=== PATIENT | female | born 1960 | race Hispanic/Latino ===

== ENCOUNTER 2019-11-25 06:02 | Day surgery (SDC) | payer BC ==
[2019-11-20 11:28] LABS: BASOPHILS % (AUTO) 0.8 % (0.0-5.0); EOSINOPHILS % (AUTO) 2.5 % (0.0-8.0); HEMATOCRIT 40.8 % (36-48); LYMPHOCYTES % (AUTO) 48.6 % (21.0-51.0); MEAN CORPUSCULAR HEMOGLOBIN 27.6 pg (27.0-33.0); MEAN CORPUSCULAR HGB CONC 32.1 g/dL (32.0-36.0); MEAN CORPUSCULAR VOLUME 86.1 fL (79-99); MONOCYTES % (AUTO) 7.6 % (3.0-13.0); NEUTROPHILS % (AUTO) 40.3 % (40.0-77.0); PLATELET COUNT (AUTO) 220 K/uL (130-400); RED BLOOD CELL COUNT(AUTO) 4.74 MIL/uL (4.00-5.50); RED CELL DISTRIBUTION WIDTH 13.9 % (11.0-15.5); WHITE BLOOD COUNT (AUTO) 5.3 K/uL (4.8-10.8)
[2019-11-20 11:39] LABS: CREATININE 0.9 mg/dL (0.5-1.5); POTASSIUM 4.1 mmol/L (3.5-5.1)
[2019-11-24 10:32] VITALS: BP 137/80
[~2019-11-25] VITALS: Ht 162.6 cm; Wt 81.8 kg
[2019-11-25] VITALS (18 sets, daily range): BP systolic 123–143; BP diastolic 65–85
[~2019-11-25 06:02] MED LIST: ASCO500C18 PO; CALC-1220 PO; IBUP-2482 PO; MELO-106 PO; MVI PO; NAPR-1141 PO
[2019-11-25] MEDS ORDERED: LIDOCAINE PF 2% 5ML ABBOJECT ONE (07:40)
[2019-11-25] MEDS ORDERED: DEXAMETHASONE SOD PHOSPHATE 10MG/ML 1ML VIAL ONE (07:40)
[2019-11-25] MEDS ORDERED: MIDAZOLAM HCL 1 MG/ML 2ML VIAL ONE (07:40)
[2019-11-25] MEDS ORDERED: SUCCINYLCHOLINE CHLORIDE 20 MG/ML 10 ML VIAL ONE (07:40)
[2019-11-25] MEDS ORDERED: ONDANSETRON HCL 4 MG/2 ML VIAL ONE ×2 (07:40→10:27)
[2019-11-25] MEDS ORDERED: GLYCOPYRROLATE 1 MG/5 ML SYRINGE ONE (07:40)
[2019-11-25] MEDS ORDERED: FENTANYL CITRATE PF 50 MCG/1 ML 2ML VIAL ONE (07:41)
[2019-11-25] MEDS ORDERED: ROCURONIUM 10MG/1ML SYR 10 MG/ML ML ONE (07:41)
[2019-11-25] MEDS ORDERED: PROPOFOL 10 MG/ML 20ML VIAL IV ONE (07:41)
[2019-11-25] MEDS ORDERED: NEOSTIGMINE 5MG/5ML SYR IV ONE (07:41)
[2019-11-25] MEDS ORDERED: LACTATED RINGERS 1000ML 1,000 ML IV ONE (08:09)
[2019-11-25] MEDS: CEFAZOLIN SODIUM 1 GM VIAL IVP ONE ×2 (08:26→09:03)
--- NOTE | 2019-11-25 08:36 | NUR ---
POTENTIAL FOR INFECTION NO SHAVING NEEDED TO RT LEG/ RT KNEE ASSESSED PER PITO REVELES MST. WIPED RT LEG / RT KNEE WITH MELE: 2% CHLORHEXIDINE GLUCONATE CLOTH PATIENTS PRE-OP SKIN PREP PER PITO REVELES MST.
[2019-11-25] MEDS ORDERED: MEPERIDINE-PF 25 MG/ML SYG ONE ×2 (09:17→10:15)
[2019-11-25] MEDS ORDERED: CEPH500B PO (09:50)
[2019-11-25] MEDS ORDERED: KETOROLAC TROMETHAMINE 30MG/ML ONE (10:02)
== END 2019-11-25 11:33 | disposition home or self-care (01) ==
LOC: DAH 06:02
PROVIDERS: ATTEND Orthopaedic Surgery
DX: M23.321 Other meniscus derangements, posterior horn of medial meniscus, right knee (principal); M22.41 Chondromalacia patellae, right knee; G89.29 Other chronic pain; M71.38 Other bursal cyst, other site; E78.00 Pure hypercholesterolemia, unspecified; M15.9 Polyosteoarthritis, unspecified; E66.9 Obesity, unspecified; Z68.30 Body mass index [BMI] 30.0-30.9, adult; Z90.710 Acquired absence of both cervix and uterus; Z83.3 Family history of diabetes mellitus; Z83.438 Family history of other disorder of lipoprotein metabolism and other lipidemia; Z82.49 Family history of ischemic heart disease and other diseases of the circulatory system; Z90.49 Acquired absence of other specified parts of digestive tract; Z98.890 Other specified postprocedural states; Z11.59 Encounter for screening for other viral diseases; Z88.8 Allergy status to other drugs, medicaments and biological substances
CPT/HCPCS: 29881; 36415; 80048; 85025; A4213; A4215; A4221; A4222; A4223; A4606; A4649 ×2; A4663; A4930 ×2; A5120; A6223; A6260; C9803; J0330; J0690; J1100; J1885; J2001; J2175 ×2; J2250; J2405 ×2; J2704; J2710; J3010; J3490; J7030; J7120; U0003

== ENCOUNTER 2023-08-22 10:40 | Day surgery (SDC) | payer BC ==
[2023-08-22] VITALS (10 sets, daily range): BP systolic 108–136; BP diastolic 56–80; PULSE 55–65; RESP 14–19
[~2023-08-22] VITALS: Ht 162.6 cm; Wt 79.4 kg
[2023-08-22] MEDS: 0.9%NACL 1000ML 1,000 ML IV ONE (13:13)
[2023-08-22] MEDS ORDERED: LIDOCAINE HCL 1% 20 ML VIAL ONE (13:48)
[2023-08-22] MEDS ORDERED: PROPOFOL 10 MG/ML 20ML VIAL IV ONE (13:48)
== END 2023-08-22 15:15 | disposition home or self-care (01) ==
LOC: DAH 10:40 → ENDO 10:40
PROVIDERS: ATTEND Internal Medicine Gastroenterology
DX: Z09 Encounter for follow-up examination after completed treatment for conditions other than malignant neoplasm (principal); D12.3 Benign neoplasm of transverse colon; K57.30 Diverticulosis of large intestine without perforation or abscess without bleeding; Z88.8 Allergy status to other drugs, medicaments and biological substances; Z82.3 Family history of stroke; Z83.3 Family history of diabetes mellitus; Z82.49 Family history of ischemic heart disease and other diseases of the circulatory system; Z86.010 Personal history of colon polyps; Z90.49 Acquired absence of other specified parts of digestive tract; Z90.710 Acquired absence of both cervix and uterus; Z98.890 Other specified postprocedural states
CPT/HCPCS: 45380; J7030 ×2; J2704; A4620; A4215 ×2; A4223; A7002; A4222; A4221; A4663; A4606; J3490

== ENCOUNTER 2024-02-04 05:52 | Day surgery (SDC) | payer BC ==
[2024-01-29 12:59] LABS: BASOPHILS # (AUTO) 0.04 K/uL (0.00-0.20); BASOPHILS % (AUTO) 0.7 % (0.0-5.0); EOSINOPHILS # (AUTO) 0.11 K/uL (0.00-0.70); EOSINOPHILS % (AUTO) 1.9 % (0.0-8.0); HEMATOCRIT 41.9 % (36-48); IMMATURE GRANULOCYTE ABSOLUTE 0.01 K/uL (0-1); LYMPHOCYTES # (AUTO) 2.9 K/uL (1.0-4.8); LYMPHOCYTES % (AUTO) 50.2 % (21.0-51.0); MEAN CORPUSCULAR HEMOGLOBIN 27.3 pg (27.0-33.0); MEAN CORPUSCULAR VOLUME 85.5 fL (79-99); MONOCYTES # (AUTO) 0.3 K/uL (0.1-1.0); NEUTROPHILS # (AUTO) 2.3 K/uL (1.8-7.7); PLATELET COUNT (AUTO) 227 K/uL (130-400); RED CELL DISTRIBUTION WIDTH 14.4 % (11.0-15.5); WHITE BLOOD COUNT (AUTO) 5.7 K/uL (4.8-10.8)
[2024-01-29 13:08] LABS: CREATININE 0.9 mg/dL (0.5-1.0); POTASSIUM 3.7 mmol/L (3.5-5.1)
[2024-01-29 13:40] VITALS: BP 145/82; PULSE 63; RESP 18; TEMP 97.4
[2024-02-04] VITALS (13 sets, daily range): BP systolic 122–138; BP diastolic 69–94; PULSE 60–75; RESP 15–16; TEMP 97.1–98.1
[~2024-02-04] VITALS: Ht 162.6 cm; Wt 80.0 kg
[2024-02-04] MEDS: LACTATED RINGERS 1000ML 1,000 ML IV ONE (06:35)
[2024-02-04] MEDS: ceFAZolin SODIUM 2 GM VIAL ONE (06:35)
[2024-02-04] MEDS ORDERED: MIDAZOLAM HCL 1 MG/ML 2ML VIAL ONE (07:18)
[2024-02-04] MEDS ORDERED: FENTanyl CITRate PF 50 MCG/1 ML 2ML VIAL ONE (07:19)
[2024-02-04] MEDS ORDERED: rocuRONium bROMide 10MG/1ML 5ML VL ONE (07:19)
[2024-02-04] MEDS ORDERED: ondanSETRON 4MG INJ ONE (07:19)
[2024-02-04] MEDS ORDERED: proPOFol 10 MG/ML 20ML VIAL IV ONE (07:19)
[2024-02-04] MEDS ORDERED: ePHEDrine SULFate 50 MG/ML AMPULE ONE (07:46)
[2024-02-04] MEDS ORDERED: ACET-2079 PO (08:24)
[2024-02-04] MEDS ORDERED: IBUP-2070 PO (08:24)
[2024-02-04] MEDS: ketOROlac 30MG VIAL (30MG/ML) ONE (08:57)
== END 2024-02-04 09:57 | disposition home or self-care (01) ==
LOC: DAH 05:52
PROVIDERS: ATTEND Orthopaedic Surgery
DX: S83.242A Other tear of medial meniscus, current injury, left knee, initial encounter (principal); K21.9 Gastro-esophageal reflux disease without esophagitis; M19.90 Unspecified osteoarthritis, unspecified site; Z90.710 Acquired absence of both cervix and uterus; Z88.1 Allergy status to other antibiotic agents; Z79.899 Other long term (current) drug therapy; X58.XXXA Exposure to other specified factors, initial encounter; Y93.89 Activity, other specified; Y92.89 Other specified places as the place of occurrence of the external cause; Y99.8 Other external cause status
CPT/HCPCS: 80048; 85025; 36415; 29881; A4663; J7120 ×2; A4649 ×2; J3010; J3490 ×2; J2250; J2704; J2405; J1885; J0690; A6223; A4930; A4215; A4223; A4222; A4221; A6450